=== PATIENT | female | born 1995 | race Caucasian/White ===

== ENCOUNTER 2016-11-27 14:54 | Emergency (ER) | payer MEDICAID ==
[~2016-11-27] VITALS: Ht 157.5 cm; Wt 68.2 kg
[2016-11-27 14:56] VITALS: BP 126/84
== END 2016-11-27 15:27 | disposition home or self-care (01) ==
LOC: ED 15:21
DX: K08.89 Other specified disorders of teeth and supporting structures (principal)
CPT/HCPCS: 99283